=== PATIENT | male | born 1970 | race African-American/Black ===

== ENCOUNTER 2016-09-30 12:48 | Emergency (ER) | payer MEDICARE, OTHER ==
[~2016-09-30] VITALS: Ht 154.9 cm; Wt 77.1 kg
--- NOTE | ~2016-09-30 | CR72 ---
[facility] A Service of [facility] & [facility] RADIOLOGY TEXT RESULTS PATIENT: LICHA MULLEN LOCATION: [facility] : 68 UNIT #: [id number] AGE: [address]: Mag Feng MD SEX: M ORDER DR: [id number] [place] [address] [place], [place] [address] [id number] MR#: [id number] Acc #: [id number] NAME: LICHA MULLEN. : 1970 SEX: M STUDY DATE/TIME: 09/30/2016 14:59 UNIT: [facility] ROOM: STUDY DESCRIPTION: CR Chest Single View Portable Attending Physician: Mag Feng M.D. Ordering Physician: Mag Feng M.D. Primary Care Physician: [facility] MEDICAL IMAGING REPORT This report is preliminary unless electronic signature is present EXAM Portable chest 09/30 INDICATIONS Right-side pleuritic chest pain, worse with deep inspiration. Symptoms started today. History of hypertension. FINDINGS AP portable chest compared with 05/23/2013. Cardiac and mediastinal contours are normal. Lungs are clear. No pneumothorax. IMPRESSION Negative portable chest. Dictated by... Quinten Saunders Jr., M.D. THIS IS AN ELECTRONICALLY VERIFIED REPORT Quinten Saunders Jr., M.D. at 10/01/2016 4:34 PM VAIBHAV/ross TD: 09/30/2016 16:57 JOB #: [id number] MEDICAL IMAGING REPORT Page 1 of 1 COPY
--- NOTE | ~2016-09-30 | EKG ---
PATIENT: LICHA MULLEN UNIT #: [id number] Ventricular Rate: 75 BPM Atrial Rate: 75 BPM P-R Interval: 170 ms QRS Duration: 72 ms Q-T Interval: 386 ms QTC Calculation(Bezet): 431 ms P [place]: 45 degrees Calculated R [place]: 54 degrees Calculated T [place]: 27 degrees Diagnosis Line: Normal sinus rhythm Diagnosis Line: Normal ECG Diagnosis Line: No previous ECGs available Diagnosis Line: Confirmed by MITESH MELTON MD ([id number]) on 10/01/2016 Diagnosis Line: 7:36:41 PM INTERPRETING MD: LINH SANDOVAL
[~2016-09-30 12:48] MED LIST: ATARAX PO; BP MED; IBUPROFEN; IBUPROFEN800 MG PO; KEFLEX PO; MEDROL PO; NAPROXEN; ULTRAM PO; VICODIN 5/1 TAB 5/50 PO
[2016-09-30 14:26] LABS: BASOPHIL# 0.1 X10e3 (0-0.3); BASOPHIL% 1.2 % (0-2.5); DIFF IND NO; EOSINOPHIL# 0.3 X10e3 (0-0.7); EOSINOPHIL% 4.8 % (0.0-7.0); HEMATOCRIT 45.8 % (38.0-50.0); HEMOGLOBIN 15.3 gm/dL (13.0-16.0); LYMPHOCYTE# 2.5 X10e3 (1.0-3.5); LYMPHOCYTE% 36.2 % (17.0-45.0); MEAN CELL VOLUME 86.6 FL (83-96); MEAN CORPUSCULAR HGB CONC 33.5 g/dL (30-36); MEAN PLATELET VOLUME 8.1 FL (6.5-11.5); MONOCYTE# 0.4 X10e3 (0-1.0); MONOCYTE% 6.1 % (3.0-12.0); NEUTROPHIL# 3.6 X10e3 (1.5-7.1); NEUTROPHIL% 51.7 % (40-75); PLATELET COUNT 207 X10e3 (140-420); RED BLOOD COUNT 5.29 X10e (3.90-5.60); RED CELL DISTRIBUTION WIDTH 15.3 % (11.0-15.5)
[2016-09-30 14:28] LABS: POC - CKMB 1.9 ng/mL (0.0-7.9); POC - TROPONIN <0.05 ng/mL (<=0.05)
[2016-09-30 14:50] LABS: ALBUMIN SERUM 4.6 g/dL (3.5-5.0); ALKALINE PHOSPHATASE 59 U/L (32-92); ALT (SGPT) 33 U/L (10-40); AST (SGOT) 25 U/L (10-42); BILIRUBIN,TOTAL 0.4 mg/dL (0.2-2.0); BLOOD UREA NITROGEN 14 mg/dL (9-23); CALCIUM SERUM 9.7 mg/dL (8.4-10.2); CARBON DIOXIDE 24 mmol/L (22-31); CHLORIDE 104 mmol/L (100-111); CREATININE SERUM 1.4 mg/dL (0.6-1.4); GLOM FILT RATE Estimated 68.9 mL/min (>60); GLUCOSE FASTING 169 mg/dL (70-110); POTASSIUM 4.5 mmol/L (3.5-5.1); SODIUM 136 mmol/L (135-145)
[2016-09-30 14:57] LABS: BILIRUBIN, DIRECT <0.1 mg/dL (0.0-0.2); BILIRUBIN,INDIRECT 0.3 mg/dL (0.0-0.9)
[2016-09-30 16:05] LABS: POC - CKMB 1.8 ng/mL (0.0-7.9); POC - TROPONIN <0.05 ng/mL (<=0.05)
== END 2016-09-30 16:45 | disposition home or self-care (01) ==
LOC: CED 12:48
PROVIDERS: Emergency Medicine
DX: R07.81 Pleurodynia (principal); E11.9 Type 2 diabetes mellitus without complications; I10 Essential (primary) hypertension; F17.200 Nicotine dependence, unspecified, uncomplicated
CPT/HCPCS: 36415; 71010; 80048; 80076; 82553; 84484; 85025; 93005; 99285